=== PATIENT | male | born 2000 | race Caucasian/White ===

== ENCOUNTER 2019-03-02 22:05 | Emergency (ER) | payer OTHER ==
[~2019-03-02] VITALS: Ht 175.3 cm; Wt 68.0 kg
[2019-03-02] MEDS ORDERED: NF (22:16)
[2019-03-02] MEDS ORDERED: MOBIC15 MG PO (23:47)
[2019-03-02 23:57] VITALS: BP 159/87
== END 2019-03-02 23:50 | disposition home or self-care (01) ==
LOC: ER 22:05
DX: G56.21 Lesion of ulnar nerve, right upper limb (principal); F17.210 Nicotine dependence, cigarettes, uncomplicated